=== PATIENT | male | born 1970 | race Caucasian/White ===

== ENCOUNTER → 2019-10-11 10:33 | Outpatient (BNVA) | payer OTHER, MEDICARE, SELFPAY | PROVIDERS: PCP Nurse Practitioner Family; Referring Provider Nurse Practitioner Family; Visit Provider Internal Medicine Rheumatology | DX: M05.9 Rheumatoid arthritis with rheumatoid factor, unspecified (principal); Z79.899 Other long term (current) drug therapy; F17.210 Nicotine dependence, cigarettes, uncomplicated; Z79.52 Long term (current) use of systemic steroids | CPT/HCPCS: 36415; 80053; 85007; 85027; 99213 ==

== ENCOUNTER → 2021-12-25 14:24 | Outpatient (BNVA) | payer MEDICARE, SELFPAY | PROVIDERS: Family Provider Nurse Practitioner Family; PCP Nurse Practitioner Family; Visit Provider Internal Medicine | DX: I25.10 Atherosclerotic heart disease of native coronary artery without angina pectoris (principal); I25.2 Old myocardial infarction; J44.9 Chronic obstructive pulmonary disease, unspecified; Z87.891 Personal history of nicotine dependence | CPT/HCPCS: 99214 ==

== ENCOUNTER → 2022-07-09 13:34 | Outpatient (BNVA) | payer MEDICARE, SELFPAY | PROVIDERS: Family Provider Nurse Practitioner Family; PCP Nurse Practitioner Family; Visit Provider Nurse Practitioner Family | DX: I25.10 Atherosclerotic heart disease of native coronary artery without angina pectoris (principal); I25.2 Old myocardial infarction; I49.3 Ventricular premature depolarization; I10 Essential (primary) hypertension; Z87.891 Personal history of nicotine dependence | CPT/HCPCS: 93005; 99214 ==

== ENCOUNTER → 2022-07-23 13:36 | Outpatient (BNVA) | payer MEDICARE, SELFPAY | PROVIDERS: Family Provider Nurse Practitioner Family; PCP Nurse Practitioner Family; Visit Provider Nurse Practitioner Family | DX: I25.10 Atherosclerotic heart disease of native coronary artery without angina pectoris (principal); I47.29 Other ventricular tachycardia; I10 Essential (primary) hypertension; Z95.5 Presence of coronary angioplasty implant and graft; Z87.891 Personal history of nicotine dependence | CPT/HCPCS: 99214 ==

== ENCOUNTER 2022-07-24 13:36 | Outpatient (CLI) | payer MEDICARE, SELFPAY ==
[2022-07-24 14:24] LABS: Erythrocyte Sedimentation Rate 68 mm/hr (0-10)
[2022-07-24 14:26] LABS: Basophils # 0.1 10^3/uL (0.0-0.1); Basophils % 0.5 %; Eosinophils # 0.3 10^3/uL (0.0-0.8); Eosinophils % 1.8 %; Hematocrit 40.5 % (42.0-52.0); Hemoglobin 13.4 g/dL (11.7-16.6); Lymphocytes # 3.5 10^3/uL (0.8-4.8); Lymphocytes % 24.4 %; Mean Corpuscular HGB Conc 33.1 g/dL (30.0-36.0); Mean Corpuscular Hemoglobin 30.6 pg (28.0-34.0); Mean Corpuscular Volume 92.5 fl (80-94); Mean Platelet Volume 9.2 fL (7.4-10.4); Monocytes # 0.9 10^3/uL (0.2-0.9); Monocytes % 6.5 %; Neutrophils # 9.37 10^3/uL (1.8-7.7); Neutrophils % 66.2 %; Nucleated Red Blood Cells % 0 %; Platelet Count 389 10^3/cmm (130-400); Red Blood Count 4.38 10^6/uL (4.1-5.3); Red Cell Distribution Width 14.6 % (12.1-15.1); White Blood Count 14.2 10^3/uL (4.0-10.0)
[2022-07-24 14:42] LABS: C Reactive Protein 37.1 mg/L (0.0-4.9)
[2022-07-24 14:53] LABS: LAB Peripheral Smear Sent for Review
[2022-07-24 14:56] LABS: Ferritin 91 ng/mL (30-400)
== END 2022-07-24 13:37 | disposition home or self-care (01) ==
LOC: LAB 13:38
PROVIDERS: Family Provider Nurse Practitioner Family; PCP Nurse Practitioner Family; Visit Provider Nurse Practitioner Family
DX: I49.3 Ventricular premature depolarization (principal); D75.839 Thrombocytosis, unspecified; D89.9 Disorder involving the immune mechanism, unspecified; I25.10 Atherosclerotic heart disease of native coronary artery without angina pectoris; I25.2 Old myocardial infarction; I47.29 Other ventricular tachycardia
CPT/HCPCS: 36415; 80503; 82728; 85025; 85651; 86140

== ENCOUNTER 2022-07-28 13:53 | Outpatient (CLI) | payer MEDICARE, SELFPAY ==
--- NOTE | 2022-07-28 12:30 | USCV_ITS ---
Reyes Sanjeev Age: 52 Gender: M : 1970 Exam Date: 07/28/2022 14:39 Ordering Phys: Nina Garcia Technologist: Stefano Hernandez [place] [facility] [place]: Hx of stemi, ,frequent PVC BP: 129 / 91 HR: 84 Rhythm: Other Technical Quality: Adequate MEASUREMENTS (Male / Female) Normal Values 2D ECHO LV Diastolic Diameter PLAX 4.2 cm 4.2 - 5.9 / 3.9 - 5.3 cm LV Systolic Diameter PLAX 3.3 cm IVS Diastolic Thickness 1.1 cm 0.6 - 1.0 / 0.6 - 0.9 cm IVS Systolic Thickness 1.4 cm LVPW Diastolic Thickness 1.3 cm 0.6 - 1.0 / 0.6 - 0.9 cm LVPW Systolic Thickness 2.0 cm LVOT Diameter 2.0 cm LV Ejection Fraction 2D Teich 42.1 % LV Ejection Fraction MOD 2C 38.3 % LV Ejection Fraction 2C AL 41.3 % LA Diameter 3.4 cm LA Width 3.2 cm LA Height 4.4 cm RA Width 3.3 cm RA Height 3.5 cm Aorta at Sinotubular Diameter 2.8 cm IVC Diameter 1.1 cm M-MODE Aortic Annulus Diameter 3.3 cm LA Ao Ratio MM 0.9 MV E Point Septal Separation 0.7 cm DOPPLER AV Peak Velocity 135.0 cm/s LVOT Peak Velocity 113.0 cm/s AV Area Cont Eq vti 2.6 cm squared AV Area Cont Eq pk 2.7 cm squared MV Peak Velocity 125.0 cm/s MV Area PHT 7.1 cm squared Mitral E to A Ratio 0.5 MV E' Velocity 29.0 cm/s Mitral E to MV E' Ratio 7.0 Mitral E to LV E' Lateral Ratio 7.0 Mitral E to LV E' Septal Ratio 7.1 TR Peak Velocity 118.8 cm/s TR Peak Gradient 5.6 mmHg TR Mean Velocity 85.2 cm/s TR Mean Gradient 3.0 mmHg TR Velocity Time Integral 19.9 cm Right Atrial Pressure 3.0 mmHg Pulmonary Artery Systolic Pressu 8.6 mmHg PV Peak Velocity 124.3 cm/s RV Acceleration Time 0.1 s RV Ejection Time 0.2 s RV AcT/ET 0.4 FINDINGS Left Ventricle Normal left ventricular cavity size. Normal left ventricular wall thickness. Moderately decreased left ventricular systolic function. Left ventricular ejection fraction is estimated at 40 %. 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 Grade I diastolic dysfunction (abnormal relaxation filling pattern), normal to mildly elevated filling pressures. Right Ventricle Normal right ventricular size and systolic function. RVSP could not be calculated due to incomplete tricuspid regurgitation velocity profile. Right Atrium Normal right atrial size. Left Atrium Mildly increased left atrial size. Mitral Valve Moderately thickened mitral valve. No mitral valve stenosis. Aortic Valve Aortic valve not well visualized.no aortic valve stenosis. No aortic valve regurgitation. Tricuspid Valve Structurally normal tricuspid valve. No tricuspid valve stenosis. Trace tricuspid valve regurgitation. Pulmonic Valve Pulmonic valve not well visualized. No pulmonary valve stenosis. No pulmonary valve regurgitation. Pericardium No pericardial effusion. Aorta Normal size aortic root and proximal ascending aorta. IVC Normal IVC dimension with >50% respiratory change of the inferior vena cava. CONCLUSIONS 1. Normal left ventricular cavity size. Normal left ventricular wall thickness. Moderately decreased left ventricular systolic function. Left ventricular ejection fraction is estimated at 40 %. 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 Grade I diastolic dysfunction (abnormal relaxation filling pattern), normal to mildly elevated filling pressures. 2. Mild-moderate mitral valve regurgitation. 3. No prior similar studies to compare. Telma Hess MD (Electronically Signed) Final Date: 30 July 2022 16:18 S
== END 2022-07-28 13:54 | disposition home or self-care (01) ==
PROVIDERS: PCP Nurse Practitioner Family; Visit Provider Nurse Practitioner Family
DX: I25.10 Atherosclerotic heart disease of native coronary artery without angina pectoris (principal); I25.2 Old myocardial infarction; I34.0 Nonrheumatic mitral (valve) insufficiency
CPT/HCPCS: 93306

== ENCOUNTER 2022-07-29 10:38 | Outpatient (CLI) | payer MEDICARE, SELFPAY ==
[2022-07-29 10:53] VITALS: BMI 23.6
--- NOTE | 2022-07-29 10:54 | NMCV_ITS ---
NM yadira perf SPECT r/s* [id number] Sanjeev Chambers Age: 52 Gender: M : 1970 Exam Date: 07/29/2022 10:54 Ordering Phys: Nina Garcia Technologist: HAMZAH Aleman Exam Location: [facility] Indications: VENTRICULAR TACHYCARDIA STRESS TEST Please see separate stress test report in Ephiphany for full findings IMAGE PROTOCOL Rest/Stress 1 Lexiscan Day Radiopharmaceutical Dose (mCi) Administration Site Administered by Rest: Tc-99m 10.6 IV Albina Valdivia CEREAL SUPERVISOR Sestamibi Stress:Tc-99m 33.0 IV Albina Hutchinsrager, CEREAL SUPERVISOR Sestamibi Rest: 29-Jul-2022 60 Discovery 630 Stress: 29-Jul-2022 30 Discovery 630 0.4mg Lexiscan. Images obtained in supine and prone position. SPECT RESULTS Technical Quality: Excellent Raw Data Analysis: Normal Image Corrections: No attenuation or motion correction applied Summed Stress Score: 20 Summed Rest Score: 13 Summed Difference Score: 8 PERFUSION FINDINGS Medium sized perfusion abnormality of basal to apical inferior, basal inferolateral, basal inferoseptal apical septal and apical lópez on rest images with mild reversibility in mid inferolateral, apical lateral and apical anterior lópez on supine stress images. There is improved tracer uptake in inferolateral and inferoseptal lópez on prone stress images. FUNCTIONAL RESULTS (calculated via Gated SPECT) Stress Image LV EF (%): 37 Stress EDV (mL):155 TID: 1 Stress ESV (mL):97 FUNCTIONAL FINDINGS: The left ventricle is normal in size. Transient Ischemia Dilatation of 1. The left ventricular ejection fraction is moderately reduced with a value of 37%. There is hypokinesis of basal to mid inferior, septal and apical lópez. Increased end-diastolic end-systolic volumes. IMPRESSIONS 1. Medium sized perfusion abnormality of basal to apical inferior, basal inferolateral, basal inferoseptal, apical septal and apical lópez with reversibility in mid to apical inferolateral and inferoseptal lópez. 2. This likely represents old myocardial infarction in right coronary artery and circumflex artery territory with moderate edgard-infarct ischemia. 3. The left ventricular ejection fraction is moderately reduced with a value of 37%. 4. There is hypokinesis of basal to mid inferior, septal and apical lópez. 5. EKG portion of the study will be reported separately. Telma Hess MD (Electronically Signed) Final Date: 30 July 2022 12:50 S
--- NOTE | 2022-07-29 10:54 | ECG_ITS ---
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 Interpretive Statements NAME OF STUDY: LEXISCAN SESTAMIBI STRESS TEST INDICATION: CHEST PAIN, HX OF CA PROCEDURE: At the baseline, the blood pressure was 142/94 mmHg with a heart rate of 75 bpm. The electrocardiogram showed sinus rhythm with isolated PVCs. Normal axis. Nonspecific ST changes. The Lexiscan was infused over a period of 20 seconds. A total of 0.4 milligrams of Lexiscan was infused. The stress phase was continued for a total of 5 minutes. Heart rate at the end of the stress phase was 92 bpm with a blood pressure of 117/80 mmHg. The EKG at the peak infusion revealed sinus rhythm with no significant ST-T wave changes. The study was terminated due to protocol completion. Sestamibi was injected 20 seconds after the Lexiscan infusion. Blood pressure at the end of the recovery phase was 137/81 mmHg with a heart rate of 89 beats per minute. CONCLUSION: 1. Normal EKG response to LexiScan infusion. 2. No LexiScan induced chest pain or cardiac arrhythmia. 3. Normal blood pressure and heart rate response. 4. Sestamibi/sestamibi perfusion scan pending; see separate report. Electronically Signed On 07-30-2022 12:35:08 CDT by Telma Hess M.D. [id number]
[2022-07-29] MEDS: regadenoson 0.4 Mg/5 ml Syringe IVP (13:08)
[2022-07-29 13:28] VITALS: BP 134/67; PULSE 82
== END 2022-07-29 10:39 | disposition home or self-care (01) ==
PROVIDERS: PCP Nurse Practitioner Family; Visit Provider Nurse Practitioner Family
DX: R07.9 Chest pain, unspecified (principal); Z86.79 Personal history of other diseases of the circulatory system; I47.20 Ventricular tachycardia, unspecified
CPT/HCPCS: 78452; 93017; A9500; J2785

== ENCOUNTER 2022-09-14 15:55 | Observation (INO) | payer MEDICARE, SELFPAY ==
[2022-09-14] VITALS (17 sets, daily range): BP systolic 98–163; BP diastolic 72–104; PULSE 60–73; RESP 16–22; TEMP 36.6; O2SAT 94–99; BMI 23.6
--- NOTE | 2022-09-14 09:00 | XACV_ITS ---
Exam Room: 2 Ht: 178 cm Wt: 75 kg BSA: 1.93 m2 Gender: Male : 1970 Any Known Allergies: No known allergies Exam Priority: Routine Procedure(s): Procedure Description: Diagnostic procedure Procedure Description: Left Heart Catheterization Procedure Description: Left ventriculography Procedure Description: Coronary Angiography Diagnostic Cath Status: Elective Diagnostic Findings * INDICATION: 52-year-old man with past medical history of CAD who has been having significant dyspnea on exertion, and NSVT on event monitor and had abnormal stress test showing prior infarct with significant edgard-infarct ischemia in LCx and RCA territory. He is here for coronary angiogram with possible percutaneous coronary intervention.. * Nonobstructive CAD. Patent prior stents.. * Left main artery: Patent LAD: Patent with diffuse moderate luminal irregularities in the mid to distal vessel Ramus artery: Patent Left circumflex artery: Patent has patent prior stent RCA: Small, nondominant vessel.. * Coronary angiography shows left dominance. Conclusions 1. Nonobstructive CAD. Patent prior stents.. 2. Mild left ventricular systolic dysfunction. Ejection fraction of 40%. Recommendations * Aggressive risk factor modification. * Outpatient cardiology follow-up in 4 weeks. Interventional RX Recommendation: medical therapy and/or counseling Diagnostic RX Recommendation: medical therapy and/or counseling Ventriculography Ejection Fraction: 40.0 % Pressures Phase:Rest AO : 97 / 73 ( 79 ) @ 11:38:00 AM 131 / 77 ( 100 ) @ 11:46:00 AM 126 / 70 ( 97 ) @ 11:46:00 AM LV : 113 / 6 / 13 @ 11:45:00 AM 111 / / 19 @ 11:46:00 AM 103 / / 15 @ 11:46:00 AM Valves Phase:DefaultPhase AV : 0.0 @ 11:56:01 AM 0.0 @ 11:56:01 AM AV Mean Gradient: 0.0 @ 11:56:01 AM Clinical Evaluation EBL: 5mL-10mL Procedural Details Admit Source: Out Patient. Pre-Procedure Time Out. Identified patient by full name and date of as verbalized by the patient/guarantor. Does the consent match the physician's order: Yes. Accurate & Complete Informed Consent: Yes. Inpatient/Outpatient History & Physical on Chart: Yes. If H&P is completed, is and addenduem needed: No; If yes, is the addendum complete: N/A. Visualize and Verify Site with Patient/Guarantor: N/A. Relevant Radiology Images available: N/A. Pre-op teaching completed and patient verbalized understanding. The risks, benefits, and alternatives of sedation and/or procedure were discussed by physician. The patient agrees to continue. Procedure started. [facility] Clinical Fraility Score: 3: Managing Well. Sealer Operator Indications: abnormal stress test. Chest Pain Symptom Assessment: Atypical Angina. Cardiovascular Instability: No,. Correct patient, site and procedure confirmed by cath team. PERRLA. Strong, equal hand solutions architect bilaterally. Lungs clear x 5 lobes. IV Site on Arrival: 20 gauge in the left anticubital. IV Fluids: 0.9% NaCl at KVO. 0 mL infused prior to terrazzo laborer. Pre Procedural Pulses: bilateral radial was 3+. Pre Procedural Pulses: bilateral posterior tibial was 1+. Pre Procedural Pulses: bilateral dorsalis pedis was 1+. Oxygen started at 2liters/min via nasal canula. right groin was prepped with chloroprep then draped in the usual sterile fashion. right radial was prepped with chloroprep then draped in the usual sterile fashion. Baseline sample Acquired. HR: 65 BPM. Physician notified. Physician arrived. Physician scrubbed in. Immediate Pre-Procedure Time Out. Correct Patient: Yes; Correct Procedure: Yes; Correct Site: Yes; Correct Patient Position: Yes; Correct Supplies: Yes; Dried Flammable Prep: Yes; Blood Products Available: N/A;. Lidocaine 1% infiltrated to the right radial. Dr Garcia using ultrasound to assist access. Needle and wire out. An attempt to gain access to the right radial artery was unsuccessful. Manual pressure was held as needed to stop the bleeding. TR band placed on right wrist per Dr Garcia. Arterial access obtained with micropuncture set. Yuki Rivera was relieved by Yuni Fofana RN, PLANER HAND as monitoring person. A 5 brazilian JL4 catheter in over the exchange J wire. Multiple views taken of left coronary artery. Catheter removed over the exchange J wire. A 5 brazilian JR4 catheter in over the exchange J wire. Cineography of the RCA performed. Catheter removed over the exchange J wire. A 5 brazilian Angled Pig catheter in over the exchange J wire. EDP Sample taken: LV 113/6,13; HR: 69 BPM; SpO2: 96%. LV gram performed in DELANEY @ 10 mL/second for a total of 30 mL. EDP Sample taken: LV 111/8,19; HR: 72 BPM; SpO2: 98%. Pullback taken: LV 103/8,15; AO 131/77(100); Mean: 0mmHg, Peak to Peak: 0mmHg, SEP: 3sec/min; HR: 70 BPM; SpO2: 98%. Catheter removed over the exchange J wire. A Right femoral angiogram was performed to determine safe placement of closure device. Dr. Garcia reviewing cineography. A Angio-Seal VIP ([place]) was successful obtaining hemostatsis at the Right Femoral artery insertion site. Angioseal placed without complications. No signs or symptoms of hematoma noted. Sterile dressing applied per usual sterile fashion. Lot # [id number]. Exp 2022-12-25. Post Procedure: Pulses reassessed and unchanged. PERRLA. Strong, equal hand solutions architect bilaterally. No VTE prophylaxis required. Medication's Wasted: Nitro = 49.9 mg. Medication's Wasted: Other = Versed 2 mg. Medication's Wasted: Heparin = 1000 Units. Total IV fluids: 41 mL. Post-op diagnosis: Mild-moderate LV dysfunction, normal coronaries. Complications: none. Estimated blood loss: 5mL-10mL. Responsiveness - Normal response to verbal stimuli; alert and oriented, PERRLA. Airway - Unaffected, no intervention required; spontaneous ventilation. Circulation: W/N/L, pulses unchanged. Nausea/Vomiting: No. Procedure completed. Patient transferred by bed to CPRU. Vital chart was stopped. Access Site Site: Right Femoral artery Sheath Size: 6 Fr Hemostasis Method: Angio-Seal VIP ([place]) Hemostasis Success: Successful Procedure Medications Start: 11:21 AM Stop: : AM Medication: Versed Amount: 1 mg Route: I.V. Start: 11: AM Stop: : AM Medication: Fentanyl Amount: 50 mcg Route: I.V. Start: 11:23 AM Stop: 11:23 AM Medication: Versed Amount: 1 mg Route: I.V. Start: 11:24 AM Stop: 11:24 AM Medication: Fentanyl Amount: 25 mcg Route: I.V. Start: 11:25 AM Stop: 11:25 AM Medication: Nitrogylcerin Amount: 100 mcg Route: I.A. Start: 11:26 AM Stop: 11: AM Medication: Versed Amount: 1 mg Route: I.V. Start: 11:35 AM Stop: 11:35 AM Medication: Versed 1 mg and Fentanyl 25 mcg Amount: 1 Route: I.V. I, the attending physician, have reviewed and verified all procedure medications. Yes, all medications given per verbal order History/Risk Factors Hypertension: Yes Dyslipidemia: Yes Peripheral Arterial Disease (PAD): No Myocardial Infarction (MS): Yes Obesity: No Tobacco Use: Former Prior Interventions PCI: Yes CABG: No Valve Surgery: No Date of PCI: 12/10/2010 Report Signatures Finalized by Ryne Garcia MD on 09/22/2022 09:28 AM
[2022-09-14] MEDS: diphenhydrAMINE 50 mg Capsule PO (09:56)
[2022-09-14 09:57] LABS: Basophils # 0.1 10^3/uL (0.0-0.1); Basophils % 0.8 %; Eosinophils # 0.3 10^3/uL (0.0-0.8); Eosinophils % 3.7 %; Hematocrit 42.3 % (42.0-52.0); Lymphocytes # 2.1 10^3/uL (0.8-4.8); Lymphocytes % 23.5 %; Mean Corpuscular HGB Conc 33.1 g/dL (30.0-36.0); Mean Corpuscular Hemoglobin 30.1 pg (28.0-34.0); Mean Platelet Volume 9.3 fL (7.4-10.4); Monocytes # 0.8 10^3/uL (0.2-0.9); Monocytes % 8.6 %; Neutrophils # 5.71 10^3/uL (1.8-7.7); Neutrophils % 63.1 %; Nucleated Red Blood Cells % 0 %; Platelet Count 347 10^3/cmm (130-400); Red Blood Count 4.65 10^6/uL (4.1-5.3); Red Cell Distribution Width 14.8 % (12.1-15.1)
[2022-09-14 10:16] LABS: Anion Gap 16.2 (5-19); Blood Urea Nitrogen 15 mg/dL (6-20); Calcium 9.5 mg/dL (8.5-10.5); Carbon Dioxide 22 mmol/L (22-29); Chloride 103 mmol/L (98-107); Glomerular Filtration Rate 100.7 mL/min (90-130); Glucose 110 mg/dL (65-115); Osmolality Calculated 285 mOsm/kg (285-295); Potassium 4.2 mmol/L (3.5-5.1); Sodium 137 mmol/L (136-145)
--- NOTE | 2022-09-14 11:16 | W.PM.OPSFHP ---
Same Day Surgery H&P Indication for Procedure/HPI DATE OF PROCEDURE: September 14, 2022 CHIEF COMPLAINT/INDICATIONFOR SURGICAL PROCEDURE: Dyspnea on exertion/NSVT/ abnormal stress test PREOP DIAGNOSIS: Dyspnea on exertion/NSVT/ abnormal stress test PLANNED PROCEDURE: Operation Date: 09/14/22 10:00 Proposed Procedures p [facility] w/-w/o [id number] R07.9,R06.02,R94.39(Left) - Ryne Garcia M.D Possible percutaneous coronary intervention 52-year-old man with past medical history of CAD who has been having significant dyspnea on exertion, and SVT on event monitor and had abnormal stress test showing prior infarct with significant edgard-infarct ischemia in LCx and RCA territory. He is here for coronary angiogram with possible percutaneous coronary intervention. Medications/Allergies* Home Medications Medication Instructions Recorded Confirmed Type aspirin 81 mg tablet,delayed 81 mg PO DAILY 10/11/19 09/14/22 History release (Adult Low Dose Aspirin) cyclobenzaprine 10 mg tablet 10 mg PO DAILY PRN muscle spasms 10/11/19 09/14/22 History folic acid 1 mg tablet 1 mg PO DAILY 10/11/19 09/14/22 History multivitamin 1 tab PO QAM 10/11/19 09/14/22 History prednisone 5 mg tablet 5 mg PO DAILY PRN Allergic Reaction 10/11/19 09/14/22 History tramadol 50 mg tablet 50 mg PO TID PRN Sleep 10/11/19 09/14/22 History Allergies/Adverse Reactions Allergy/AdvReac Type Severity Reaction Status Date / Time No Known Allergies Allergy Verified 09/14/22 09:53 Current Medications: Generic Name Dose Route Start Last Admin Trade Name Freq PRN Reason Stop Dose Admin Sodium Chloride 1,000 mls @ 50 mls/hr 09/14/22 09:00 09/14/22 09:56 Sodium Chloride 0.9% IV 09/15/22 04:59 Not Given .Q20H ONE Pertinent History/Comorbid Conditions* Medical History (Updated 07/24/22 @ 12:28 by SYED Garcia) CAD (coronary artery disease) COPD (chronic obstructive pulmonary disease) Dyslipidemia Essential hypertension History of inferior wall myocardial infarction Hyperglobulinemia Immunosuppression Latent tuberculosis Medication monitoring encounter Olecranon bursitis of both elbows Seropositive rheumatoid arthritis of multiple joints Tobacco abuse Surgical History (Updated 07/23/22 @ 12:05 by SYED Garcia) History of coronary angioplasty S/P right coronary artery (RCA) stent placement STEMI, stent 2010 Family History (Updated 10/11/19 @ 09:01 by Libia Benitez LPN) CAD (coronary artery disease) Mother Father Social History Smoking and tobacco status: former smoker Household members: spouse Marital status: Current occupational status: disabled Pertinent Exam Findings alert, oriented x 3, clear to auscultation bilaterally and regular rate & rhythm Conscious Sedation Assessment PATIENT ASSESSED PRIOR TO SEDATION, WITH NO CHANGE NOTED: Yes AIRWAY EVAL/ANESTHESIA PLAN: normal airway, see other exam findings, ASA III, Local Anesthesia, Risks, benefits & alternatives of sedation and/or procedure discussed and Patient agrees to continue as planned Recommendations Surgery/Procedure today (Left heart cath with possible percutaneous coronary intervention) Coding Level of Care Code Acute Bottom Brusher for Varinder Aguila
--- NOTE | 2022-09-14 11:58 | SUR.PHASEI ---
RECOVERY NOTE Patient brought back from cath. Status post cardiac catheterization. See vitals and flowsheet for details. MD/Family/Patient discussion. Verbalized understanding. No hematoma formation noted at right femoral access site. Site- Angiosealed. Call light in reach. Informed to call for needs.
--- NOTE | 2022-09-14 12:00 | SUR.PHASEI ---
POST OP IV FLUID RATE IV SET TO 50 ML/HR 0.9% NS infusing with no difficulty.
--- NOTE | 2022-09-14 15:50 | SUR.PHASEI ---
POST OP NOTE/AMBULATION Patient sat up and ambulated around unit. No change in right groin assessment.
--- NOTE | 2022-09-14 18:40 | PC.NURSE ---
Discahrge info provided and discussed, including metoprolol dosage increase, and follow-up appt to be made by patient. Pt requesting info be sent to his [facility] physician in [place], pt and instructed to asked for consent for authorized information form at the next Dr visit when all of this information will be ready . Pt and ambulated out of unit.
== END 2022-09-14 18:43 | disposition home or self-care (01) ==
LOC: ICU 15:56
PROVIDERS: Admitting Provider Internal Medicine; PCP Nurse Practitioner Family; Visit Provider Internal Medicine
DX: I25.10 Atherosclerotic heart disease of native coronary artery without angina pectoris (principal); Z95.5 Presence of coronary angioplasty implant and graft; I10 Essential (primary) hypertension; E78.5 Hyperlipidemia, unspecified; I25.2 Old myocardial infarction; Z87.891 Personal history of nicotine dependence; J44.9 Chronic obstructive pulmonary disease, unspecified
CPT/HCPCS: 36415; 80048; 85025; 93458; 96361; 96365; 99152; 99153; C1760; C1769; C1887; C1894; G0269; G0378; J1644; J2250; J3010; J3490; J7030; Q0163; Q9967

== ENCOUNTER → 2023-03-22 15:53 | Outpatient (BNVA) | payer MEDICARE, SELFPAY | PROVIDERS: PCP Nurse Practitioner Family; Visit Provider Internal Medicine | DX: I25.10 Atherosclerotic heart disease of native coronary artery without angina pectoris (principal); I25.2 Old myocardial infarction; J44.9 Chronic obstructive pulmonary disease, unspecified; Z72.0 Tobacco use; E78.5 Hyperlipidemia, unspecified; I10 Essential (primary) hypertension | CPT/HCPCS: 99214 ==

== ENCOUNTER → 2024-02-29 10:24 | Outpatient (BNVA) | payer MEDICARE, SELFPAY | PROVIDERS: PCP Nurse Practitioner Family; Visit Provider Nurse Practitioner Family | DX: I25.10 Atherosclerotic heart disease of native coronary artery without angina pectoris (principal); I11.0 Hypertensive heart disease with heart failure; I50.22 Chronic systolic (congestive) heart failure; F17.210 Nicotine dependence, cigarettes, uncomplicated | CPT/HCPCS: 99214 ==

== ENCOUNTER 2024-03-06 13:43 | Outpatient (CLI) | payer MEDICARE, SELFPAY ==
--- NOTE | 2024-03-06 14:00 | USCV_ITS ---
Sanjeev Chambers Age: 54 Gender: M : 1970 Exam Date: 03/06/2024 14:04 Ordering Phys: Nina Garcia Technologist: CT Exam Location: [facility] [place]_ Indication: ef BP: 136 / 81 HR: 69 Rhythm: Sinus Technical Quality: Adequate MEASUREMENTS (Male / Female) Normal Values 2D ECHO LVOT Diameter 2.2 cm LV Ejection Fraction MOD 2C 52.2 % LV Ejection Fraction 2C AL 57.4 % LA Diameter 3.3 cm RA Systolic Volume 4C AL 39.2 ml RA Systolic Volume 4C MOD 34.2 ml Aorta at Sinotubular Diameter 3.1 cm IVC Diameter 1.3 cm M-MODE LA Ao Ratio MM 1.2 AV Cusp Separation MM 2.7 cm DOPPLER AV Peak Velocity 133.0 cm/s LVOT Peak Velocity 78.0 cm/s AV Area Cont Eq vti 3.1 cm squared AV Area Cont Eq pk 2.2 cm squared MV Peak Velocity 108.0 cm/s MV Area PHT 3.6 cm squared Mitral E to A Ratio 0.6 TV Peak Velocity 128.5 cm/s TR Peak Velocity 133.0 cm/s TR Peak Gradient 7.1 mmHg TV Peak E Velocity 75.0 cm/s Right Atrial Pressure 3.0 mmHg Pulmonary Artery Systolic Pressu 10.1 mmHg FINDINGS Left Ventricle Left ventricle is normal size. LV systolic function is normal with EF 50-55%. No regional wall motion abnormalities are seen. Grade 1 diastolic dysfunction. Right Ventricle Normal size and function Right Atrium Normal in size Left Atrium Normal in size Mitral Valve Structurally normal mitral valve. Moderate mitral regurgitation. Aortic Valve Structurally normal aortic valve. No significant stenosis or regurgitation. Tricuspid Valve Insufficient TR jet to calculate RVSP. Pulmonic Valve Not well visualized Pericardium Normal Aorta Normal in size IVC Appears to be normal CONCLUSIONS LV systolic function is normal with EF of 50-55%. Grade 1 diastolic dysfunction. Moderate mitral regurgitation Compared to prior echcoardiogram from 2021, LV systolic function has improved and is normal now. Ryne Garcia MD (Electronically Signed) Final Date: 11 March 2024 23:19 S
== END 2024-03-06 13:44 | disposition home or self-care (01) ==
LOC: RAD 13:44
PROVIDERS: PCP Nurse Practitioner Family; Visit Provider Nurse Practitioner Family
DX: I50.22 Chronic systolic (congestive) heart failure (principal); I50.30 Unspecified diastolic (congestive) heart failure; I34.0 Nonrheumatic mitral (valve) insufficiency
CPT/HCPCS: 93306

== ENCOUNTER 2024-11-22 15:13 | Observation (INO) | payer MEDICARE, SELFPAY ==
[2024-11-22] VITALS (13 sets, daily range): BP systolic 100–153; BP diastolic 78–106; PULSE 63–102; RESP 13–20; TEMP 36.4–36.5; O2SAT 93–98; BMI 24.0
--- NOTE | 2024-11-22 15:16 | XR_ITS ---
WS: [id number] Portable AP upright chest, 11/22/2024 Clinical Data: cp Comparison: Two-view chest, 04/06/2017 Findings: No nodules, masses or effusions are seen. The heart is normal. The pulmonary vascularity is not increased. No pneumonia or pneumothorax is seen. The aortic arch and descending thoracic aorta are minimally tortuous. The diaphragms are flattened. XR/XR chest 1V portable [id number] Impression: Atherosclerosis and hyperinflation.
--- NOTE | 2024-11-22 15:16 | ECG_ITS ---
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 Measurements Intervals Union Rate: 111 P: 86 AK: 134 QRS: 79 QRSD: 86 T: -19 QT: 328 QTc: 446 Interpretive Statements SINUS TACHYCARDIA WITH FREQUENT VENTRICULAR PREMATURE COMPLEXES POSSIBLE RIGHT ATRIAL ENLARGEMENT [0.25mV P-WAVE] ST DEVIATION AND MODERATE T-WAVE ABNORMALITY, CONSIDER INFERIOR ISCHEMIA [-0.1+ mV T-WAVE IN II/aVF] No previous ECG available for comparison Electronically Signed On 11-25-2024 08:02:42 ORACLE DEVELOPER by Ryne Garcia M.D. [id number]
[2024-11-22 15:56] LABS: Basophils # 0.1 10^3/uL (0.0-0.1); Basophils % 0.8 %; Eosinophils # 0.1 10^3/uL (0.0-0.8); Eosinophils % 1.2 %; Hematocrit 50.2 % (37-53); Lymphocytes # 2.1 10^3/uL (0.8-4.8); Lymphocytes % 27.5 %; Mean Corpuscular HGB Conc 32.3 g/dL (30-55); Mean Corpuscular Hemoglobin 28.8 pg (27-33); Mean Corpuscular Volume 89.2 fl (82-101); Mean Platelet Volume 9.2 fL (7.4-10.4); Monocytes # 0.7 10^3/uL (0.2-0.9); Monocytes % 8.6 %; Neutrophils # 4.66 10^3/uL (1.8-7.7); Neutrophils % 61.5 %; Nucleated Red Blood Cells % 0 %; Platelet Count 386 10^3/cmm (157-399); Red Blood Count 5.63 10^6/uL (3.85-5.65); Red Cell Distribution Width 14.6 % (12.1-15.1); White Blood Count 7.57 10^3/uL (3.29-11.43)
[2024-11-22 16:17] LABS: Troponin(5th) Baseline 19 ng/L (0-15)
[2024-11-22 16:22] LABS: Alanine Aminotransferase 16 U/L (0-41); Alkaline Phosphatase 196 U/L (40-130); Aspartate Amino Transferase 24 U/L (0-40); Blood Urea Nitrogen 19 mg/dL (6-20); Calcium 9.5 mg/dL (8.5-10.5); Carbon Dioxide 22 mmol/L (22-29); Chloride 100 mmol/L (98-107); Creatinine Clr Calc Pharmacy 72.2182; Glomerular Filtration Rate 62.6 mL/min (90-130); Glucose 117 mg/dL (65-115); Lipase 20 U/L (13-60); Osmolality Calculated 291 mOsm/kg (285-295); Sodium 139 mmol/L (136-145); Total Bilirubin 0.6 mg/dL (0.15-1.2)
[2024-11-22 16:29] LABS: Anion Gap 21.6 (5-19); Potassium 4.6 mmol/L (3.5-5.1)
--- NOTE | 2024-11-22 16:30 | W.ED.ABDPA2 ---
HPI - Abdominal Pain General: Chief Complaint: Abdominal Pain Stated Complaint: chest pain Time Seen by Provider: 11/22/24 15:44 History of Present Illness: 54-year-old male presents to the emergency room complaining of epigastric discomfort going on for last 3 days he is not able to swallow anything he localizes pain to the epigastrium states he cannot swallow saliva or water. Initially this began 3 days ago he did vomit some blood he says it was about a half a cupful of blood but he has not had any since then. He is not on any anticoagulants. He is a former heavy drinker but quit several years ago. He is never had any upper GI bleed or esophageal stenosis in the past. He does have a history of coronary artery disease his last intervention was an angiogram in August 2022 showed some diffuse luminal irregularities but no significant disease and there is no balloons or stents at that time. He has had previous stents. He states he will often get shortness of breath with activity but he does not have specific chest pain with that he has not used any nitroglycerin recently. Associated Symptoms: Denies chills, dysuria and fever(s) Related Data Home Medications ?Medication ?Instructions ?Recorded ?Confirmed aspirin 81 mg tablet,delayed 81 mg PO DAILY 10/11/19 02/29/24 release (Adult Low Dose Aspirin) cyclobenzaprine 10 mg tablet 10 mg PO DAILY PRN muscle spasms 10/11/19 02/29/24 folic acid 1 mg tablet 1 mg PO DAILY 10/11/19 02/29/24 multivitamin 1 tab PO QAM 10/11/19 02/29/24 prednisone 5 mg tablet 5 mg PO DAILY PRN Allergic Reaction 10/11/19 02/29/24 tramadol 50 mg tablet 50 mg PO TID PRN Sleep 10/11/19 02/29/24 Previous Rx's ?Medication ?Instructions ?Recorded methotrexate sodium 2.5 mg tablet 17.5 mg (7 x 2.5 mg) PO .every 10/16/19 seven days #28 tabs etanercept 50 mg/mL (1 mL) 50 mg SUBCUT .COMPLEX #4 mL 11/27/19 subcutaneous pen injector (Enbrel SureClick) atorvastatin 80 mg tablet 80 mg PO DAILY #90 tabs 02/14/24 metoprolol tartrate 50 mg tablet See Rx Instructions .Route 02/15/24 .COMPLEX #180 tabs sildenafil 50 mg tablet (Viagra) 50 mg PO DAILY #30 tabs 03/23/24 nitroglycerin 0.4 mg sublingual See Rx Instructions .Route 10/02/24 tablet .COMPLEX #25 tabs Allergies Allergy/AdvReac Type Severity Reaction Status Date / Time No Known Allergies Allergy Verified 11/22/24 15:24 Review of Systems Const: Denies: fever(s) or chills Card: Reports: chest pain and dyspnea on exertion Resp: Denies: dyspnea GI: Denies: abdominal pain : Denies: dysuria, urinary frequency or urinary urgency Musc: Denies: neck pain or back pain Skin/Breast: Denies: rash PFSH ED PFSH: Medical History History of inferior wall myocardial infarction COPD (chronic obstructive pulmonary disease) Tobacco abuse Dyslipidemia Essential hypertension CAD (coronary artery disease) Immunosuppression Medication monitoring encounter Hyperglobulinemia Latent tuberculosis Olecranon bursitis of both elbows Seropositive rheumatoid arthritis of multiple joints Surgical History S/P right coronary artery (RCA) stent placement STEMI, stent 2011 History of coronary angioplasty Family History Mother CAD (coronary artery disease) Father CAD (coronary artery disease) Social History Smoking and tobacco/nicotine status: current every day tobacco/nicotine user Substance/Drug Use: current Household members: spouse Marital status: Current occupational status: disabled Physical Exam Const: COMMON NORMALS: no acute distress GENERAL APPEARANCE: cooperative and comfortable ORIENTATION/CONSCIOUSNESS: Yes awake, Yes oriented to person, Yes oriented to place and Yes oriented to time HENMT: COMMON NORMALS: normocephalic, atraumatic and hearing grossly normal bilaterally HEAD & SCALP: normocephalic and atraumatic Resp: COMMON NORMALS: normal respiratory effort, No retractions, No use of accessory muscles and clear to auscultation bilaterally AUSCULTATION: clear to auscultation bilaterally Cardio: COMMON NORMALS: regular rate, regular rhythm and No murmurs present (Cardio) RATE: regular rate RHYTHM: regular rhythm GI: COMMON NORMALS: Soft to palpation and No hepatosplenomegaly present AUSCULTATION: Yes normoactive bowel sounds PALPATION: Yes Soft to palpation, No Tenderness to palpation present (GI), No Guarding due to palpation present (GI) and Yes No hepatosplenomegaly present Extremity: COMMON NORMALS: normal to inspection, capillary refill normal, no clubbing, cyanosis or edema, no calf tenderness and no pedal edema Neuro: SENSORIUM/ORIENTATION: Yes oriented to person, Yes oriented to place and Yes oriented to time Skin: COMMON NORMALS: no rashes or lesions noted GENERAL SKIN EXAM: no rashes or lesions noted Course Vital Signs: Vital signs: Vital Signs Temperature 97.7 F 11/22/24 20:27 Pulse Rate 59 L 11/23/24 06:00 Respiratory Rate 18 11/23/24 06:00 Blood Pressure 135/92 11/23/24 02:00 Pulse Oximetry 100 11/23/24 06:00 Oxygen Delivery Me thod Room Air 11/23/24 06:00 MDM - Abdominal Pain Medical Decision Making Esophageal fluid bolus. Discussed with Dr. Gallegos is on-call for surgery will take him to the GI lab to relieve. Also need evaluation for reports of episode of hematemesis. Medical Records I reviewed the patient's medical records. Lab Data I reviewed the patient's lab results. 11/22/24 15:43 11/22/24 15:43 Labs/Radiology: Radiology Impressions Chest X-Ray 11/22/24 15:16 Impression: Atherosclerosis and hyperinflation. Laboratory Results WBC 7.57 10^3/uL (3.29-11.43) 11/22/24 15:43 RBC 5.63 10^6/uL (3.85-5.65) 11/22/24 15:43 Hgb 16.20 g/dL (11.27-16.99) 11/22/24 15:43 Hct 50.2 % (37-53) 11/22/24 15:43 MCV 89.2 fl (82-101) 11/22/24 15:43 MCH 28.8 pg (27-33) 11/22/24 15:43 MCHC 32.3 g/dL (30-55) 11/22/24 15:43 RDW 14.6 % (12.1-15.1) 11/22/24 15:43 Plt Count 386 10^3/cmm (157-399) 11/22/24 15:43 MPV 9.2 fL (7.4-10.4) 11/22/24 15:43 Neut % (Auto) 61.5 % 11/22/24 15:43 Lymph % (Auto) 27.5 % 11/22/24 15:43 [place] % (Auto) 8.6 % 11/22/24 15:43 Eos % (Auto) 1.2 % 11/22/24 15:43 Baso % (Auto) 0.8 % 11/22/24 15:43 Neut # (Auto) 4.66 10^3/uL (1.8-7.7) 11/22/24 15:43 Lymph # (Auto) 2.1 10^3/uL (0.8-4.8) 11/22/24 15:43 [place] # (Auto) 0.7 10^3/uL (0.2-0.9) 11/22/24 15:43 Eos # (Auto) 0.1 10^3/uL (0.0-0.8) 11/22/24 15:43 Baso # (Auto) 0.1 10^3/uL (0.0-0.1) 11/22/24 15:43 Nucleated RBC % (auto) 0 % 11/22/24 15:43 Nucleated RBCs # 0.0 /100WBC 11/22/24 15:43 PT 12.80 SECONDS (12.1-14.9) 11/22/24 15:43 INR 0.90 (0.8-1.2) 11/22/24 15:43 Sodium 139 mmol/L (136-145) 11/22/24 15:43 Potassium 4.6 mmol/L (3.5-5.1) 11/22/24 15:43 Chloride 100 mmol/L (98-107) 11/22/24 15:43 Carbon Dioxide 22 mmol/L (22-29) 11/22/24 15:43 Anion Gap 21.6 (5-19) H 11/22/24 15:43 BUN 19 mg/dL (6-20) 11/22/24 15:43 Creatinine 1.2 mg/dL (0.7-1.2) 11/22/24 15:43 GFR Calculation 62.6 mL/min (90-130) L 11/22/24 15:43 Glucose 117 mg/dL (65-115) H 11/22/24 15:43 Calculated Osmolality 291 mOsm/kg (285-295) 11/22/24 15:43 Calcium 9.5 mg/dL (8.5-10.5) 11/22/24 15:43 Total Bilirubin 0.6 mg/dL (0.15-1.2) 11/22/24 15:43 AST 24 U/L (0-40) 11/22/24 15:43 ALT 16 U/L (0-41) 11/22/24 15:43 Alkaline Phosphatase 196 U/L (40-130) H 11/22/24 15:43 Troponin T Baseline 19 ng/L (0-15) H 11/22/24 15:43 Troponin T 120 Minute 13.25 ng/L (0-15) 11/22/24 17:38 Delta Troponin T -5.75 ABS# (0-10) L 11/22/24 17:38 Total Protein 8.0 g/dL (6.6-8.7) 11/22/24 15:43 Albumin 4.0 g/dL (3.5-5.2) 11/22/24 15:43 Globulin 4.0 g/dL (1.3-4.6) 11/22/24 15:43 Lipase 20 U/L (13-60) 11/22/24 15:43 No radiology studies performed this visit Discharge Plan Discharge Patient Disposition: Admitted As Inpatient Admit Provider: Andre Gallegos Clinical Impression: Esophageal obstruction due to food impaction Condition: Stable Coding Level of Care Code ED Overhauler for Chg Fwd
[2024-11-22 16:53] LABS: Slide Review Slide Review Perform
--- NOTE | 2024-11-22 17:06 | ECG_ITS ---
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 Measurements Intervals [place] Rate: 94 P: 75 ID: 141 QRS: 70 QRSD: 92 T: 18 QT: 359 QTc: 450 Interpretive Statements SINUS RHYTHM WITH FREQUENT VENTRICULAR PREMATURE COMPLEXES NONSPECIFIC ST & T-WAVE ABNORMALITY Compared to ECG 11/22/2024 15:17:13 Sinus tachycardia no longer present Possible ischemia no longer present T-wave abnormality still present Electronically Signed On 11-25-2024 08:25:53 MICROFILM TECHNICIAN by Ryne Garcia M.D. [id number] [id number]
--- NOTE | 2024-11-22 17:09 | PM.HP ---
Providers/Chief Complaint Primary Care Provider: SYED Morocho Chief Complaint: chest pain History of Present Illness Sanjeev Chambers is a 54 year old male who presents with complaints of dysphagia presumably from an impacted food bolus. Complaining that he cannot swallow saliva. ER workup otherwise unremarkable. Medications/Allergies Home Medications ?Medication ?Instructions ?Recorded ?Confirmed ?Last Taken ?Type aspirin 81 mg tablet,delayed 81 mg PO DAILY 10/11/19 02/29/24 09/14/22 07:30 History release (Adult Low Dose Aspirin) cyclobenzaprine 10 mg tablet 10 mg PO DAILY PRN muscle spasms 10/11/19 02/29/24 Unknown History folic acid 1 mg tablet 1 mg PO DAILY 10/11/19 02/29/24 09/13/22 21:30 History multivitamin 1 tab PO QAM 10/11/19 02/29/24 09/13/22 07:30 History prednisone 5 mg tablet 5 mg PO DAILY PRN Allergic Reaction 10/11/19 02/29/24 09/02/22 History tramadol 50 mg tablet 50 mg PO TID PRN Sleep 10/11/19 02/29/24 09/13/22 14:00 History methotrexate sodium 2.5 mg tablet 17.5 mg (7 x 2.5 mg) PO .every 10/16/19 02/29/24 09/02/22 Rx seven days #28 tabs etanercept 50 mg/mL (1 mL) 50 mg SUBCUT .COMPLEX #4 mL 11/27/19 02/29/24 09/02/22 Rx subcutaneous pen injector (Enbrel SureClick) atorvastatin 80 mg tablet 80 mg PO DAILY #90 tabs 02/14/24 02/29/24 Unknown Rx metoprolol tartrate 50 mg tablet See Rx Instructions .Route 02/15/24 02/29/24 Unknown Rx .COMPLEX #180 tabs sildenafil 50 mg tablet (Viagra) 50 mg PO DAILY #30 tabs 03/23/24 Unknown Rx nitroglycerin 0.4 mg sublingual See Rx Instructions .Route 10/02/24 Unknown Rx tablet .COMPLEX #25 tabs Allergies Allergy/AdvReac Type Severity Reaction Status Date / Time No Known Allergies Allergy Verified 11/22/24 15:24 PFSH Acute PFSH: Medical History History of inferior wall myocardial infarction COPD (chronic obstructive pulmonary disease) Tobacco abuse Dyslipidemia Essential hypertension CAD (coronary artery disease) Immunosuppression Medication monitoring encounter Hyperglobulinemia Latent tuberculosis Olecranon bursitis of both elbows Seropositive rheumatoid arthritis of multiple joints Surgical History S/P right coronary artery (RCA) stent placement STEMI, stent 2011 History of coronary angioplasty Family History Mother CAD (coronary artery disease) Father CAD (coronary artery disease) Social History Smoking and tobacco/nicotine status: current every day tobacco/nicotine user Substance/Drug Use: current Household members: spouse Marital status: Current occupational status: disabled Vitals/I&O/Wt Last Vital Signs Temp 97.5 F L 11/22/24 15:20 Pulse 76 11/22/24 15:20 Resp 17 11/22/24 15:20 BP 140/91 11/22/24 15:20 Pulse Ox 95 11/22/24 15:20 O2 Del Method Room Air 11/22/24 15:20 Weight last 48 hrs Weight 168 lb Physical Exam Narrative: Unlabored breathing RA RRR Abdomen soft, nt, nd Data 11/22/24 15:43 11/22/24 15:43 A&P Assessment and plan (1) Food bolus obstruction of intestine: Plan 54 yo male with an impacted food bolus. Discussed risks and benefits and patient agrees to proceed with EGD and food bolus disimpaction. PDMP PDMP Reviewed: Not Reviewed Attestations Medical Necessity Statement*: po trial Coding Level of Care Code 34714 Diagnoses Food bolus obstruction of intestine K56.699; W44.F3XA Time Spent (min) 30
--- NOTE | 2024-11-22 17:29 | ANES.PREANE2 ---
Pre-Anesthetic Assessment Height/Weight: Height 1.78 m Weight 76.204 kg Temp Pulse Resp BP Pulse Ox O2 Del Method 97.5 F L 76 17 140/91 95 Room Air 11/22/24 15:20 11/22/24 15:20 11/22/24 15:20 11/22/24 15:20 11/22/24 15:20 11/22/24 15:20 Operation Date: 11/22/24 18:00 Proposed Procedures p EGD(Not Applicable) - Andre Gallegos MD Familial anesthetic complications: none Was Beta Yasir taken within 24 hours: Yes Was Clonidine taken within 24 hours: N/A Social Tobacco and No alcohol Exam alert, oriented x 3, clear to auscultation bilaterally and regular rate & rhythm Airway Mallampati: Class II Dentition: chipped and other (multiple missing, poor dentition) Pulmonary Chronic Obstructive Pulmonary Disease CV/HEM Arrythmia, Coronary Artery Disease, Hypertension and Myocardial Infarction EF 50% on most recent echo Stents clear on most [place] [facility] [place] Rheumatoid Arthritis Anesthetic Plan ASA status: 4E Anesthesia: General Risk of > 500 ml blood loss (7ml/kg in children): No Medications/Allergies Home Medications ?Medication ?Instructions ?Recorded ?Confirmed ?Last Taken ?Type aspirin 81 mg tablet,delayed 81 mg PO DAILY 10/11/19 02/29/24 09/14/22 07:30 History release (Adult Low Dose Aspirin) cyclobenzaprine 10 mg tablet 10 mg PO DAILY PRN muscle spasms 10/11/19 02/29/24 Unknown History folic acid 1 mg tablet 1 mg PO DAILY 10/11/19 02/29/24 09/13/22 21:30 History multivitamin 1 tab PO QAM 10/11/19 02/29/24 09/13/22 07:30 History prednisone 5 mg tablet 5 mg PO DAILY PRN Allergic Reaction 10/11/19 02/29/24 09/02/22 History tramadol 50 mg tablet 50 mg PO TID PRN Sleep 10/11/19 02/29/24 09/13/22 14:00 History methotrexate sodium 2.5 mg tablet 17.5 mg (7 x 2.5 mg) PO .every 10/16/19 02/29/24 09/02/22 Rx seven days #28 tabs etanercept 50 mg/mL (1 mL) 50 mg SUBCUT .COMPLEX #4 mL 11/27/19 02/29/24 09/02/22 Rx subcutaneous pen injector (Enbrel SureClick) atorvastatin 80 mg tablet 80 mg PO DAILY #90 tabs 02/14/24 02/29/24 Unknown Rx metoprolol tartrate 50 mg tablet See Rx Instructions .Route 02/15/24 02/29/24 Unknown Rx .COMPLEX #180 tabs sildenafil 50 mg tablet (Viagra) 50 mg PO DAILY #30 tabs 03/23/24 Unknown Rx nitroglycerin 0.4 mg sublingual See Rx Instructions .Route 10/02/24 Unknown Rx tablet .COMPLEX #25 tabs Allergies Allergy/AdvReac Type Severity Reaction Status Date / Time No Known Allergies Allergy Verified 11/22/24 15:24 [facility] Anesthesia Medical History History of inferior wall myocardial infarction COPD (chronic obstructive pulmonary disease) Tobacco abuse Dyslipidemia Essential hypertension CAD (coronary artery disease) Immunosuppression Medication monitoring encounter Hyperglobulinemia Latent tuberculosis Olecranon bursitis of both elbows Seropositive rheumatoid arthritis of multiple joints Surgical History S/P right coronary artery (RCA) stent placement STEMI, stent 2011 History of coronary angioplasty Family History Mother CAD (coronary artery disease) Father CAD (coronary artery disease) Social History Smoking and tobacco/nicotine status: current every day tobacco/nicotine user Substance/Drug Use: current Household members: spouse Marital status: Current occupational status: disabled Data Anesthesia 11/22/24 15:43 11/22/24 15:43 Short CBC 11/22/24 Range/Units 15:43 WBC 7.57 (3.29-11.43) 10^3/uL Hgb 16.20 (11.27-16.99) g/dL Hct 50.2 (37-53) % MCV 89.2 (82-101) fl Plt Count 386 (157-399) 10^3/cmm Neut % (Auto) 61.5 % Neut # (Auto) 4.66 (1.8-7.7) 10^3/uL BMP 11/22/24 15:43 Sodium 139 Potassium 4.6 Chloride 100 Carbon Dioxide 22 BUN 19 Creatinine 1.2 Glucose 117 H Calcium 9.5 Cardiac Enzymes 11/22/24 Range/Units 15:43 Troponin T Baseline 19 H (0-15) ng/L Liver Function 11/22/24 Range/Units 15:43 Total Bilirubin 0.6 (0.15-1.2) mg/dL AST 24 (0-40) U/L ALT 16 (0-41) U/L Alkaline Phosphatase 196 H (40-130) U/L Albumin 4.0 (3.5-5.2) g/dL Coags 11/22/24 15:43 PT 12.80 INR 0.90 Cardiac Studies: Echocardiogram 03/06/24 Sestamibi Stress Test (Cardiology) 07/29/22 Cardiac Event Monitor 07/09/22
--- NOTE | 2024-11-22 18:05 | P.MISC_ITS ---
Miscellaneous Note Note: 24hr obs. Ubaldo hart.
--- NOTE | 2024-11-22 18:05 | PM.MISC ---
Miscellaneous Note Note: 24hr obs. Ubaldo hart.
--- NOTE | 2024-11-22 18:31 | PC.NURSE ---
Arrived from GI lab, AO x4 no c/o other than cough after procedure
--- NOTE | 2024-11-22 18:35 | ANE.PACU2 ---
Inpatient post-anesthesia follow up: Airway intact: Yes Vital signs: Temperature 97.8 F Pulse Rate 70 Respiratory Rate 12 Blood Pressure 117/89 Pulse Oximetry 95 Oxygen Delivery Me thod Room Air Oxygen Flow Rate Fraction of Inspir ed Oxygen Hydration adequate: Yes Nausea and vomiting: No Pain level: 1 Mental status: Baseline
--- NOTE | 2024-11-22 18:40 | SUR.OPER ---
successful food bolus removal. requested patient stay overnight for observation. patient transferred to an overflow bed ICU 1.
[2024-11-22 18:54] LABS: Troponin 5 2HR 13.25 ng/L (0-15); Troponin 5 2HR Delta -5.75 ABS# (0-10)
[2024-11-22] MEDS: metoprolol tartrate 50 mg Tablet 75 MG PO (19:30)
--- NOTE | 2024-11-22 21:16 | ECG_ITS ---
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 Measurements Intervals [place] Rate: 62 P: 72 VT: 155 QRS: 57 QRSD: 101 T: 59 QT: 452 QTc: 461 Interpretive Statements SINUS RHYTHM POSSIBLE INFERIOR MYOCARDIAL INFARCTION , PROBABLY OLD [30 ms Q WAVE IN II/aVF] Compared to ECG 11/22/2024 17:06:24 Myocardial infarct finding now present Ventricular premature complex(es) no longer present T-wave abnormality no longer present Electronically Signed On 11-25-2024 08:24:45 MAIL PROCESSOR by Ryne Garcia M.D. [id number] [id number]
[2024-11-23] VITALS (7 sets, daily range): BP systolic 117–135; BP diastolic 74–92; PULSE 57–70; RESP 12–19; TEMP 36.6; O2SAT 93–100
[2024-11-23] MEDS: metoprolol tartrate 50 mg Tablet 75 MG PO (08:22)
--- NOTE | 2024-11-23 09:06 | PC.NURSE ---
Dr. Vera to bedside, patient will be discharged.
--- NOTE | 2024-11-23 09:22 | PM.DCS ---
Discharge Providers Date of Admission: 11/22/24 18:23 Date of Discharge: November 23, 2024 Attending Provider at Admission: Andre Gallegos MD Attending Provider at Discharge: Andre Gallegos MD Primary Care Provider: SYED Morocho Diagnoses at Discharge Discharge Diagnosis (1) Food bolus obstruction of intestine: Status: Acute Reason for Visit Reason for Visit: chest pain Hospital Course Hospital Course 54-year-old male who presented with an impacted food bolus. Taken to GI lab for EGD and disimpaction. Disimpaction was successful. Patient did have a small mucosal tear. Patient tolerated clear liquids and was discharged on following morning Physical Exam Narrative: Chest: Unlabored breathing room air. No lymphadenopathy. Heart: Regular rate and rhythm. Abdomen: Soft, nontender, nondistended. No masses or lymphadenopathy. Discharge Data Studies Completed and Pending Completed Studies During Hospitalization Category Date Time Status XR chest 1V portable [id number] Stat Exams 11/22/24 15:16 Completed Radiology Impressions Chest X-Ray 11/22/24 15:16 Impression: Atherosclerosis and hyperinflation. Laboratory Results WBC 7.57 10^3/uL (3.29-11.43) 11/22/24 15:43 RBC 5.63 10^6/uL (3.85-5.65) 11/22/24 15:43 Hgb 16.20 g/dL (11.27-16.99) 11/22/24 15:43 Hct 50.2 % (37-53) 11/22/24 15:43 MCV 89.2 fl (82-101) 11/22/24 15:43 MCH 28.8 pg (27-33) 11/22/24 15:43 MCHC 32.3 g/dL (30-55) 11/22/24 15:43 RDW 14.6 % (12.1-15.1) 11/22/24 15:43 Plt Count 386 10^3/cmm (157-399) 11/22/24 15:43 MPV 9.2 fL (7.4-10.4) 11/22/24 15:43 Neut % (Auto) 61.5 % 11/22/24 15:43 Lymph % (Auto) 27.5 % 11/22/24 15:43 [place] % (Auto) 8.6 % 11/22/24 15:43 Eos % (Auto) 1.2 % 11/22/24 15:43 Baso % (Auto) 0.8 % 11/22/24 15:43 Neut # (Auto) 4.66 10^3/uL (1.8-7.7) 11/22/24 15:43 Lymph # (Auto) 2.1 10^3/uL (0.8-4.8) 11/22/24 15:43 [place] # (Auto) 0.7 10^3/uL (0.2-0.9) 11/22/24 15:43 Eos # (Auto) 0.1 10^3/uL (0.0-0.8) 11/22/24 15:43 Baso # (Auto) 0.1 10^3/uL (0.0-0.1) 11/22/24 15:43 Nucleated RBC % (auto) 0 % 11/22/24 15:43 Nucleated RBCs # 0.0 /100WBC 11/22/24 15:43 PT 12.80 SECONDS (12.1-14.9) 11/22/24 15:43 INR 0.90 (0.8-1.2) 11/22/24 15:43 Sodium 139 mmol/L (136-145) 11/22/24 15:43 Potassium 4.6 mmol/L (3.5-5.1) 11/22/24 15:43 Chloride 100 mmol/L (98-107) 11/22/24 15:43 Carbon Dioxide 22 mmol/L (22-29) 11/22/24 15:43 Anion Gap 21.6 (5-19) H 11/22/24 15:43 BUN 19 mg/dL (6-20) 11/22/24 15:43 Creatinine 1.2 mg/dL (0.7-1.2) 11/22/24 15:43 GFR Calculation 62.6 mL/min (90-130) L 11/22/24 15:43 Glucose 117 mg/dL (65-115) H 11/22/24 15:43 Calculated Osmolality 291 mOsm/kg (285-295) 11/22/24 15:43 Calcium 9.5 mg/dL (8.5-10.5) 11/22/24 15:43 Total Bilirubin 0.6 mg/dL (0.15-1.2) 11/22/24 15:43 AST 24 U/L (0-40) 11/22/24 15:43 ALT 16 U/L (0-41) 11/22/24 15:43 Alkaline Phosphatase 196 U/L (40-130) H 11/22/24 15:43 Troponin T Baseline 19 ng/L (0-15) H 11/22/24 15:43 Troponin T 120 Minute 13.25 ng/L (0-15) 11/22/24 17:38 Delta Troponin T -5.75 ABS# (0-10) L 11/22/24 17:38 Total Protein 8.0 g/dL (6.6-8.7) 11/22/24 15:43 Albumin 4.0 g/dL (3.5-5.2) 11/22/24 15:43 Globulin 4.0 g/dL (1.3-4.6) 11/22/24 15:43 Lipase 20 U/L (13-60) 11/22/24 15:43 Vitals Last Vital Signs Temp 97.8 F 11/23/24 08:00 Pulse 63 11/23/24 08:00 Resp 19 H 11/23/24 08:00 BP 122/74 11/23/24 08:00 Pulse Ox 93 11/23/24 08:00 O2 Del Method Room Air 11/23/24 08:00 Discharge Plan Discharge Patient Disposition: Home Condition: Stable Prescriptions: Continued multivitamin Tablet 1 tab PO QAM aspirin [Adult Low Dose Aspirin] 81 mg tablet,delayed release (DR/EC) 81 mg PO DAILY folic acid 1 mg tablet 1 mg PO DAILY methotrexate sodium 2.5 mg tablet 17.5 mg PO .every seven days Qty: 28 2RF atorvastatin 80 mg tablet 80 mg PO DAILY Qty: 90 3RF metoprolol tartrate 50 mg tablet See Rx Instructions .ROUTE .COMPLEX Qty: 180 3RF Dose Instruction: TAKE ONE AND ONE-HALF TABLETS BY MOUTH TWICE DAILY. Rx Instructions: TAKE ONE AND ONE-HALF TABLETS BY MOUTH TWICE DAILY. nitroglycerin 0.4 mg tablet, sublingual See Rx Instructions .ROUTE .COMPLEX Qty: 25 1RF Dose Instruction: PLACE 1 TABLET UNDER THE TONGUE EVERY 5 MINUTES NEEDED FOR CHEST PAIN. IF NO RELIEF AFTER 2 DOSES, CALL 911. MAXIMUM OF 3 TABLETS PER EPISODE. STRENGTH: 0.4MG Rx Instructions: PLACE 1 TABLET UNDER THE TONGUE EVERY 5 MINUTES NEEDED FOR CHEST PAIN. IF NO RELIEF AFTER 2 DOSES, CALL 911. MAXIMUM OF 3 TABLETS PER EPISODE. STRENGTH: 0.4MG No Action sildenafil 100 mg tablet 100 mg PO DAILY PRN (Reason: erectile dysfunction.) Discharge Orders: Discharge Order (Routine); Ordered 11/23/24 Ordered By: Andre Gallegos Referrals: Andrew,CONSUELO CooperP [Primary Care Provider] - 11/28/24 9:00 am Discharge Diet: Usual diet Discharge Activity: Resume usual activity Patient Instructions: Dysphagia, Aspiration Precautions (DC), Upper Endoscopy (DC), GI Post Discharge Instructions w/ Anesthesia, Opioid Safety Discharge Attestations Time Spent in Discharge Care*: greater than 30 min Quality Metrics Clinical Quality Measures [ No reported AMI, CVA or VTE this stay] Coding Level of Care Code Acute Code for Chg Fwd Diagnoses Food bolus obstruction of intestine K56.699; W44.F3XA
--- NOTE | 2024-11-23 09:40 | PC.PHAR ---
verified medications and last fill dates with [facility] in [place].
--- NOTE | 2024-11-23 09:51 | PC.NURSE ---
Discharged to home.
== END 2024-11-23 09:47 | disposition home or self-care (01) ==
LOC: ER 16:31 → OR 17:37 → ICU 19:03
PROVIDERS: Emergency Medicine; Admitting Provider Student in an Organized Health Care Education/Training Program; Emergency Provider Family Medicine; PCP Nurse Practitioner Family; Visit Provider Student in an Organized Health Care Education/Training Program
PROC: 0DJ08ZZ Inspection of Upper Intestinal Tract, Via Natural or Artificial Opening Endoscopic (ICD-10-PCS; principal; 2024-11-22 18:00)
DX: T18.128A Food in esophagus causing other injury, initial encounter (principal); W44.F3XA Food entering into or through a natural orifice, initial encounter; I25.10 Atherosclerotic heart disease of native coronary artery without angina pectoris; Z79.82 Long term (current) use of aspirin; Z79.899 Other long term (current) drug therapy; I25.2 Old myocardial infarction; J44.9 Chronic obstructive pulmonary disease, unspecified; E78.5 Hyperlipidemia, unspecified; I10 Essential (primary) hypertension; D84.9 Immunodeficiency, unspecified; Z22.7 Latent tuberculosis; M05.89 Other rheumatoid arthritis with rheumatoid factor of multiple sites; Z95.5 Presence of coronary angioplasty implant and graft; F17.200 Nicotine dependence, unspecified, uncomplicated
CPT/HCPCS: 36415; 43247; 71045; 80053; 83690; 84484; 85025; 85610; 93005; 99285; G0378; J0330; J2405; J2704; J3010

== ENCOUNTER 2025-02-27 10:02 | Outpatient (CLI) | payer MEDICARE, SELFPAY ==
[2025-02-27 10:25] VITALS: PULSE 59; RESP 18; O2SAT 97
[2025-02-27] MEDS: albuterol 2.5 mg/3 mL Neb INHALATION (10:25)
== END 2025-02-27 10:03 | disposition home or self-care (01) ==
LOC: RT 10:05
PROVIDERS: PCP Nurse Practitioner Family; Visit Provider Internal Medicine Rheumatology
DX: R06.09 Other forms of dyspnea (principal); J98.8 Other specified respiratory disorders; R94.2 Abnormal results of pulmonary function studies
CPT/HCPCS: 94060; 94726; 94729; J7613

== ENCOUNTER 2025-05-09 15:27 | Outpatient (CLI) | payer MEDICARE, SELFPAY | END 2025-05-09 15:28 | disposition home or self-care (01) | LOC: RAD 05-12 09:34 | PROVIDERS: PCP Nurse Practitioner Family; Visit Provider Internal Medicine Rheumatology | DX: I25.10 Atherosclerotic heart disease of native coronary artery without angina pectoris (principal); I10 Essential (primary) hypertension; J44.9 Chronic obstructive pulmonary disease, unspecified; E78.5 Hyperlipidemia, unspecified; Z72.0 Tobacco use; Z95.5 Presence of coronary angioplasty implant and graft; I25.2 Old myocardial infarction | CPT/HCPCS: 99214 ==